=== PATIENT | female | born 1950 | race Caucasian/White ===

== ENCOUNTER 2017-08-28 17:26 | Emergency (ER) | payer MEDICARE ==
[2017-08-28 18:11] VITALS: BP 109/54
--- NOTE | 2017-08-28 19:23 | UC ---
Komal Trivedi Rebecca, scribed for Reyna Park MD on 08/28/17 at 1920 . Skin Complaint HPI - HPI Summary HPI Summary: Pt is a 66 y/o F who presents to [facility] c/o L lateral calf erythema and pain s/ p dog scratch. Pt got a tattoo on Saturday (8 days ago) and on Saturday night (4 days ago) she was scratched by her son's puppy's nails. The following day it became erythematous and drained yellow fluid. On triage, pain was severe, ranked 8/10. Has been applying neosporin and hand lotion to the tattoo and has not taken anything for the pain. PMHx DM - BG has been controlled lately and she has never had any skin infections that don't heal well. Last Tetanus within the last 10 years. 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 Pt's medications reviewed this visit - History of Current Complaint Chief Complaint: UCLowerExtremity Time Seen by Provider: 08/28/17 19:12 Stated Complaint: LEFT LEG COMPLAINT Hx Obtained From: Patient Onset/Duration: Lasting Days - 4 days ago, Still Present Current Severity: Severe Pain Intensity: 8 Pain Scale Used: 0-10 Numeric Location: Other - Left calf Character: Pain, Redness Associated Signs & Symptoms: Positive: Drainage - Yellow. Negative: Fever - Allergy/Home Medications Allergies/Adverse Reactions: Allergies Allergy/AdvReac Type Severity Reaction Status Date / Time aspirin Allergy See Comment Verified 08/28/17 18:12 bee venom protein (honey bee) Allergy Anaphylatic Verified 08/28/17 18:12 Shock Sulfa (Sulfonamide Allergy Rash Verified 08/28/17 18:12 Antibiotics) ANTIBIOTICS Allergy Severe GI PROBLEMS Uncoded 08/28/17 18:12 Review of Systems Constitutional: Negative Skin: Other - L calf erythema and pain with drainage Eyes: Negative ENT: Negative Respiratory: Negative Cardiovascular: Negative Gastrointestinal: Negative Genitourinary: Negative Motor: Negative Neurovascular: Negative Musculoskeletal: Negative Neurological: Negative Psychological: Negative All Other Systems Reviewed And Are Negative: Yes PMH/Surg Hx/FS Hx/Imm Hx Endocrine History: Diabetes, Dyslipidemia - HLD Cardiovascular History: Hypertension - Surgical History Surgical History: Yes Surgery Procedure, Year, and Place: CATARACTS (BILAT), ORBITAL "BLOWOUT", DENTAL EXTRACTIONS, BACK SURGERY, , CHOLECYSTECTOMY, APPENDECTOMY, CYSTS/FIBROUS TUMORS, 2 OPERATIONS ON ARM - Family History Known Family History: Positive: Diabetes - Social History 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 Alcohol Use: None Substance Use Type: None Smoking Status (MU): Former Smoker Physical Exam - Summary Physical Exam Summary: Vital Signs Reviewed: Yes A+Ox3, no distress Eyes: Conjunctiva Clear ENT: Hearing grossly normal neck: supple Respiratory: Positive: No respiratory distress, No accessory muscle use Cardiovascular: skin color reflect adequate perfusion 2+ DP, PT CBT < 2 sec Musculoskeletal Exam: BUCKLEY x 4 without difficulty Neurological: Positive: Alert, ambulatory without difficulty Psychological: Positive: Normal Response To Family Skin: Positive: left lateral calf pt with fresh tatoo. pt with scratch through wound with scab + erythema no fluctuance, no induration, no drainage No crepitus Triage Information Reviewed: Yes Vital Signs: Initial Vital Signs Temp 98.4 F 08/28/17 18:06 Pulse 68 08/28/17 18:06 Resp 18 08/28/17 18:06 BP 109/54 08/28/17 18:06 Pulse Ox 98 08/28/17 18:06 Course/Dx - Course Course Of Treatment: Patient medications reviewed this visit. Pt with cellulitis and abraison left lateral mid thigh in area of fresh tatoo. abx. wound care. return precautions - Diagnoses Provider Diagnoses: cellulitis Discharge - Sign-Out/Discharge Documenting (check all that apply): Discharge/Admit/Transfer - Discharge Plan Condition: Stable Disposition: HOME Prescriptions: DOXYcycline CAP(*) [DOXYcycline 100MG CAP(*)] 100 mg PO BID #14 cap Patient Education Materials: Cellulitis (ED) Referrals: Martínez Antoine MD [Primary Care Provider] - Additional Instructions: - Take antibiotics as prescribed until gone - Elevate your leg to help with swelling and pain - Okay to alternate ibuprofen (Advil, Motrin) and Tylenol every 3 hours for pain or fever. Take with food. Do NOT take for more than 4-5 days. - Keep wound clean, Okay to cover with thin layer of antibiotic ointment and bandage while at work - when home, okay to leave open to air - Monitor your wound for worsening infection - reddness, red streaking, odor, green drainage - if you have any concerns it is recommended you go to the emergency department for further evaluation - Billing Disposition and Condition Condition: STABLE Disposition: Home The documentation as recorded by the Komal lobo Rebecca accurately reflects the service I personally performed and the decisions made by me, Reyna Park MD.
== END 2017-08-28 19:35 | disposition home or self-care (01) ==
LOC: UCEAST 17:26
DX: L03.116 Cellulitis of left lower limb (principal); E11.9 Type 2 diabetes mellitus without complications; I10 Essential (primary) hypertension; Z88.6 Allergy status to analgesic agent; Z91.030 Bee allergy status; Z88.2 Allergy status to sulfonamides; Z88.1 Allergy status to other antibiotic agents; Z87.891 Personal history of nicotine dependence
CPT/HCPCS: 99212; G0463

== ENCOUNTER → 2018-09-29 09:42 | Day surgery (SDC) | payer MEDICARE ==
[~2018-09-29 09:42] MED LIST: Ascorbic Acid TAB* 500 MG PO SCH; Aspirin EC TAB* 81 MG TAB.EC PO SCH; Atorvastatin* 40 MG TAB PO SCH; BIOTIN 5000 MCG PO SCH; CHOLECALCIFEROL 1000 UNIT PO SCH; Cyanocobalamin TAB* 500 MCG PO SCH; Diazepam TAB(*) 5 MG ONE; Enalapril TAB* 5 MG PO SCH; FLUoxetine CAP* 10 MG PO SCH; Fluticasone NASAL SPRAY 50MCG* 16 gm SPRAY BTL BOTH NARES PRN; Heparin 2 UNITS/ML IVPREMIX* 3,000 UNIT/1,500 ML BAG IV ONE; Heparin(*) 1000 UNIT/ML 10 ML VIAL CATH LAB IV ONE; Iodixanol 320 (CONTRAST) 100 ML SDV ONE; Lidocaine 1% INJ* 10 MG/ML 30 ML SDV ONE; Midazolam* 1 MG/ML 5 ML VIAL (5 MG) ONE; NS 0.9% 1000 ML** 1,000 ML IV SCH; Olopatadine 0.2% (NF) 1 DROP BTL BOTH EYES SCH; Pantoprazole TAB * 40 MG TAB PO SCH; SIMVASTATIN PO SCH; Triamcinolone Acetonide* 40 MG/ML 1 ML VIAL PRN; VERAPAMIL 2.5 MG/ML 2 ML VIAL ** 5 mg/2 ml ONE; ValACYclovir (*) 500 MG TAB PO PRN; diPHENhydraMINE PO* 25 MG ONE; fentaNYL* 50 MCG/ML 2 ML VIAL (100 MCG VIAL) ONE; nitroGLYCERIN DRIP* 25,000 MCG/250 ML BTL ONE
--- NOTE | 2018-09-29 14:05 | CATH ---
"*[facility]* [place] [address] Main: [phone] [email or web address] Cardiac Catheterization Patient: Mary Jane Wise : 1950 Study Date: 09/29/2018 Age: 67 Gender: F HR: Height: 67 in /170.2 cm BSA: 2.17 m^2 Weight: 212.1 lb /96.4 kg BMI: 33.3 kg/m^2 District Agent: Blayne Caballero MD Ordering Physician: Jose M Adams MD Referring Physician: Jose M Adams MD - Right coronary angiography. - Left coronary angiography. Summary: 1. RV marginal 2: Lesion: There is an 85% stenosis in the proximal portion. The vessel is of small caliber. 2. No significant coronary artery disease in left dominant system Recommendations: The patient will be seen back in follow up by her primary agency legal counsel, Dr. Jose M Adams for further cardiac evaluation into causes for her symptoms. Indications: Asked by Dr. Jose M Adams to perform diagnostic coronary arteriography in light of and abnormal coronary CTA describing multivessel disease in a patient with aortic stenosis with exrtional chest discomfort. History: Functional status: CCS class II (slight limitation of ordinary activity). Risk factors: Current tobacco use. Hypertension. Diabetes mellitus; on therapy with oral hypoglycemics. Dyslipidemia. Family history is significant for coronary artery disease. Medications: The patient received no antianginal therapy in the last two weeks. Labs, prior tests, procedures, and surgery: Blood tests: International normalized ratio (INR) of 0.85. Serum potassium (K) of 4.1 mEq/l. Serum sodium (Na) of 141 mEq/l. Serum creatinine (current admission) of 0.75 mg/dl. Blood urea nitrogen of 14 mg/dl. Glucose of 135 mg/dl. Platelet count of 259 th/ul. White blood cell count (WBC) of 0.01 th/ul. Red blood cell count (RBC) of 4440 th/ul. Hematocrit of 39 %. Hemoglobin (pre-procedure) of 13.1 g/dl. Study data: Study status: Cardiac cath: elective. Location: Catheterization laboratory. Consent: The risks, benefits, and alternatives to the procedure were explained to the patient and/or their healthcare transportation services representative and written informed consent was obtained. All available pre-procedure labs were reviewed. Height: 170.2 cm. 67 in. Weight: 96.4 kg. 212.1 lb. Body surface area: 2.17 m^2. Body mass index: 33.3 kg/m^2. Procedure: 1. Initial setup. The patient was brought to the laboratory. Surface ECG leads, blood pressure measurements, and pulse oximetric signals were monitored. A baseline seven lead ECG was recorded. A time out was observed per protocol. 2. Skin preparation. The planned puncture sites were prepped and draped in the usual sterile manner. 3. Local anesthesia. 1% lidocaine was administered. 4. Local anesthesia. 1% lidocaine (2 ml) was administered. 5. Right radial artery access. A 6F Glidesheath Slender sheath was advanced into the vessel. 6. Supplemental oxygen. Oxygen, 2 L/min was administered throughout the procedure. 7. Selective right coronary angiography. A 5F TIG 4.0 catheter was advanced into the right coronary vessel ostium under fluoroscopic guidance. Contrast was injected. Images were obtained in multiple projections. 8. Selective left coronary angiography. A 5F TIG 4.0 catheter was advanced into the left coronary vessel ostium under fluoroscopic guidance. Contrast was injected using 2 injections. Images were obtained in multiple projections. 9. Right radial artery hemostasis. Vessel closure was achieved with a Regular Vasc Band device. Study completion: Minimal estimated blood loss. All catheters inserted during the procedure were removed. There were no apparent complications. Administered medications: VALIUM (Diazepam), 2.5mg, PO. BENADRYL (Diphenhydramine), 25mg, PO. (Radial) Nitroglycerin, 300mcg, intra-arterially. (Radial) Verapamil, 3mg, intra-arterially. (Radial) Heparin, 3,000units, intra-arterially. NaCl 0.9% , infusion , at a rate of 50 ml/hr. NaCl 0.9% , 100 ml , bolus. NaCl 0.9% , infusion , at a rate of 50 ml/hr. Contrast: Visipaque 45 ml (total dose). Visipaque 55 ml (wasted). Radiation: Fluoroscopy time: 5.2 min.Air Kerma - 1257mGy. DAP -7893microGy/m2 Discharge: The patient tolerated the procedure well and was discharged from the lab in stable condition. Findings Coronary arteries: The coronary circulation is left dominant. The left main has a normal course and is very short. The left anterior descending has a normal course to the anterior AV groove, gives rise to 3 diagonals, and wraps around the apex. The left circumflex gives rise to 4 obtuse marginals and the posterior descending artery. The right coronary gives rise to 2 RV marginals. Left main: Normal, 0% stenosis. LAD: Minor luminal irregularities. Left circumflex: Distal vessel lesion: There is a 30% stenosis. Right coronary: RV marginal 2: Lesion: There is an 85% stenosis in the proximal portion. The vessel is of small caliber. Hemodynamics: + + + |Stage description |Condition 1 -| + + + |Arterial pressure s/d (m)|140/66 (94) | + + + Prepared and electronically signed by Blayne Caballero MD 09/29/2018 14:04"
[2018-09-29 15:02] VITALS: BP 156/68
== END | disposition home or self-care (01) ==
LOC: CHICATH 09:42
PROVIDERS: ATTEND Internal Medicine Cardiovascular Disease
DX: I25.10 Atherosclerotic heart disease of native coronary artery without angina pectoris (principal); R07.9 Chest pain, unspecified; I35.0 Nonrheumatic aortic (valve) stenosis; I10 Essential (primary) hypertension; E78.00 Pure hypercholesterolemia, unspecified; E11.69 Type 2 diabetes mellitus with other specified complication; Z79.84 Long term (current) use of oral hypoglycemic drugs; I44.7 Left bundle-branch block, unspecified; Z72.0 Tobacco use; F32.89 Other specified depressive episodes
CPT/HCPCS: 76937; 93454; A9270-GY; J1644; J2250; J3010

== ENCOUNTER 2019-04-21 12:53 | Emergency (ER) | payer MEDICARE ==
--- OUTSIDE RECORDS SUMMARY | 2019-04-21 12:59 | XMS REPORT | Continuity of Care Document ---
:1950 External Reference #:[id number] Author Name Jose M Adams DO FACC (transmitted by agent of provider Milka Hussein) Address [facility]. 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 [phone] Medicine Problems Description No Information Available Social History Type Date Description Comments Sex Unknown Tobacco Use Start: Unknown End: Former Cigarette Smoker Unknown ETOH Use Denies alcohol use Tobacco Use Start: Unknown End: Patient is a former started at age 17, Unknown smoker quit at age 62, 1 1/2 ppd Recreational Drug Use Denies Drug Use Tobacco Use Start: Unknown Patient is a current e-cigg smoker smoker, smokes every day Smoking Status Reviewed: 03/30/19 Patient is a current e-cigg smoker smoker, smokes every day Exercise Type/Frequency Does not exercise Allergies, Adverse Reactions, Alerts Active Allergies Reaction Severity Comments Date NKDA 10/09/2018 Sulfa Antibiotics 04/14/2013 Latex 04/14/2013 Tape 04/14/2013 Bee Sting 09/25/2018 Metals Hives 09/25/2018 Iodinated Diagnostic Agents Oral contrast causes GI 10/09/2018 upset, Medications Active Medications SIG Qnty Indications Ordering Provider Date Aspirin 1 by mouth every 90tabs R07.9 Jose M Adams, 09/25/[address] day DO FACC Atorvastatin Calcium 1 by mouth every 90tabs E78.5 Jose M Adams, 2018 40mg day DO FACC Tablets Pantoprazole Sodium 1 by mouth every 90tabs I35.0 Jose M Adams, 2018 20mg day DO FACC Tablets Enalapril Maleate 1 po qd Unknown 10mg Tablets Vitamin D-3 1 by mouth every Unknown 1000Unit day Capsules Vitamin B12 1 by mouth every Unknown 6000mcg day Tablets ER Metformin HCL 1 by mouth twice Unknown 1000mg a day Tablets Vitamin C ER 3 by mouth every Unknown 500mg day Capsules ER Fluoxetine HCL 1 by mouth every Unknown 10mg day Capsules Triamcinolone apply twice a Unknown Acetonide day as needed 0.1% Cream Biotin Maximum 1 by mouth daily Unknown Strength 5000mcg Capsules Olopatadine HCL one drop in each Unknown 0.2% eye daily. Solution Fluticasone Propionate 2 sprays each Unknown nostril daily as 50mcg/Act Suspension needed Medications Administered in Office Medication SIG Qnty Indications Ordering Provider Date Inj, Regadenoson, 0.1 MG Jose M Adams, DO [facility] 12/26/2015 Injection Technetium TC 99M Jose M Adams, DO [facility] 12/26/2015 Tetrofosmin, Per Unit Dose Up To 40 Millicuries Injection Immunizations Description No Information Available Vital Signs Date Vital Result Comment 03/30/2019 1:50pm Height 67 inches 5'7" Weight 205.00 lb with shoes BP Systolic Sitting 124 mmHg lue reg cuff BP Diastolic Sitting 68 mmHg lue reg cuff BP Systolic Standing 126 mmHg lue reg cuff BP Diastolic Standing 68 mmHg lue reg cuff Respiratory Rate 16 /min BMI (Body Mass Index) 32.1 kg/m2 Ejection Fraction 55-60% echo. 06/30/18 10/09/2018 7:51am Height 67 inches 5'7" Weight 214.00 lb with shoes Heart Rate 64 /min BP Systolic Sitting 114 mmHg lue reg cuff BP Diastolic Sitting 68 mmHg lue reg cuff BP Systolic Standing 118 mmHg lue reg cuff BP Diastolic Standing 68 mmHg lue reg cuff Respiratory Rate 16 /min BMI (Body Mass Index) 33.5 kg/m2 Ejection Fraction 55-60% echo. 06/30/18 Results Description No Information Available Procedures Date Code Description Status 10/20/2018 69645 Moderate Sedation Services; Same Phys Intl 15 Mins; PT >= Completed 5 Years 10/20/2018 74713 Color Flow Doppler/Interp & Reprt Completed 10/20/2018 93541 Pulse Wave/Continuous-Interp.RPT Completed 10/20/2018 75102 Echocardiography, Transesophageal, Real Time W/Image 2D Completed W/W/O M-M 09/29/2018 64620 Cath PLMT&NJX L Ventriculog Img S&I Completed Medical Devices Description No Information Available Encounters Type Date Location Provider Dx Diagnosis Office Visit 10/09/2018 [facility] Jose M Adams, I35.0 Nonrheumatic aortic 8:00a Of Chinchilla Farmer DO FACC (valve) stenosis I44.7 Left bundle-branch block, unspecified I25.84 Coronary atherosclerosis due to calcified coronary lesion I20.8 Other forms of angina pectoris E11.69 Type 2 diabetes mellitus with other specified complication F17.201 Nicotine dependence, unspecified, in remission I10 Essential (primary) hypertension E78.5 Hyperlipidemia, unspecified Assessments Date Code Description Provider 03/30/2019 I35.0 Nonrheumatic aortic (valve) stenosis Jose M Adams, DO FACC 03/30/2019 I44.7 Left bundle-branch block, unspecified Jose M SMalina Adams, DO FACC 03/30/2019 I25.84 Coronary atherosclerosis due to Jose M SMalina Adams, DO FACC calcified coronary lesion 03/30/2019 I10 Essential (primary) hypertension Jose M Adams, DO FACC 03/30/2019 E78.5 Hyperlipidemia, unspecified Jose M SMalina Adams, DO FACC 10/20/2018 I35.0 Nonrheumatic aortic (valve) stenosis Jose M SMalina Adams, DO FACC 10/09/2018 I35.0 Nonrheumatic aortic (valve) stenosis Jose M SMalina Adams, DO FACC 10/09/2018 I44.7 Left bundle-branch block, unspecified Jose M SMalina Adams, DO FACC 10/09/2018 I25.84 Coronary atherosclerosis due to Jose M S. Adams, DO FACC calcified coronary lesion 10/09/2018 I20.8 Other forms of angina pectoris Jose M Adams, DO FACC 10/09/2018 E11.69 Type 2 diabetes mellitus with other Jose M SMalina Adams, DO FACC specified complication 10/09/2018 F17.201 Nicotine dependence, unspecified, in Jose M Adams, DO [facility] remission 10/09/2018 I10 Essential (primary) hypertension Jose M Adams, DO [facility] 10/09/2018 E78.5 Hyperlipidemia, unspecified Jose M Adams, DO [facility] 09/29/2018 I25.10 Atherosclerotic heart disease of Blayne Caballero M.D., [facility], [place] coronary artery with FSCAI Plan of Treatment 03/30/2019 - Jose M Adams, DO FACCI35.0 Nonrheumatic aortic (valve) stenosisNew Orders:Echocardiogram, Ordered: 03/30/19Follow up:Schedule echo 2019 f/u kprymegitfY09.7 Left bundle-branch block, oroxmclwuiaM67.84 Coronary atherosclerosis due to calcified coronary [id number] Essential (primary) [id number] Hyperlipidemia, unspecified Functional Status Description No Information Available Mental Status Description No Information Available Referrals Description No Information Available
[2019-04-21 13:48] VITALS: BP 129/70
--- NOTE | 2019-04-21 13:54 | UC ---
Hand/Wrist HPI - HPI Summary HPI Summary: 68 yo female presents with LEFT thumb injury. 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 This morning she was cleaning her hands and pulled her left thumb in an attempt to scrub it and felt a sharp pain and pop at the base of her volar thumb. Since that time has not been able to flex her thumb at MCP. She is right handed. Denies numbness or tingling. - History Of Current Complaint Chief Complaint: UCUpperExtremity Stated Complaint: LEFT THUMB INJURY Time Seen by Provider: 04/21/19 13:54 Hx Obtained From: Patient Onset/Duration: Sudden Onset Severity Initially: Moderate Severity Currently: Moderate Pain Intensity: 0 - Allergies/Home Medications Allergies/Adverse Reactions: Allergies Allergy/AdvReac Type Severity Reaction Status Date / Time Adhesive Tape Allergy Rash Verified 04/21/19 13:48 bee venom protein (honey bee) Allergy Anaphylatic Verified 04/21/19 13:48 Shock Iodinated Contrast Media Allergy Nausea And Verified 04/21/19 13:48 Vomiting latex Allergy Rash Verified 04/21/19 13:48 Sulfa (Sulfonamide Allergy Rash Verified 04/21/19 13:48 Antibiotics) aspirin AdvReac See Comment Verified 04/21/19 13:48 ANTIBIOTICS Allergy Severe GI PROBLEMS Uncoded 04/21/19 13:48 bandaids Allergy Rash Uncoded 04/21/19 13:48 METALS Allergy See Comment Uncoded 04/21/19 13:48 PMH/Surg Hx/FS Hx/Imm Hx Endocrine History: Diabetes, Dyslipidemia Cardiovascular History: Hypertension - Surgical History Surgical History: Yes Surgery Procedure, Year, and Place: CATARACTS (BILAT), ORBITAL "BLOWOUT", DENTAL EXTRACTIONS, BACK SURGERY, , CHOLECYSTECTOMY, APPENDECTOMY, CYSTS/FIBROUS TUMORS, 2 OPERATIONS ON ARM - Family History Known Family History: Positive: Diabetes - Social History Occupation: Employed Full-time Lives: With Family Alcohol Use: None Substance Use Type: None Smoking Status (MU): Former Smoker Type: eCigarettes Review of Systems All Other Systems Reviewed And Are Negative: No Constitutional: Positive: Negative Skin: Positive: Negative Respiratory: Positive: Negative Cardiovascular: Positive: Negative Neurovascular: Positive: Negative Musculoskeletal: Positive: Other: - Left thumb pain Neurological: Positive: Negative Psychological: Positive: Negative Physical Exam - Summary Physical Exam Summary: GENERAL: NAD. WDWN. No pain distress. SKIN: No rashes, sores, lesions, or open wounds. CHEST: No accessory muscle use. Breathing comfortably and in no distress. CV: Pulses intact radial and ulnar. Cap refill <2seconds MSK: LEFT THUMB: Passive ROM intact. Active ROM decrease - unable to flex at MCP. FROM at IP. NTTP. Mild edema and ecchymosis at volar MCP. No snuffbox tenderness. NEURO: Alert. Sensations intact hand and all fingers. PSYCH: Age appropriate behavior. Triage Information Reviewed: Yes Vital Signs: Initial Vital Signs Temp 98.5 F 04/21/19 13:46 Pulse 75 04/21/19 13:46 Resp 16 04/21/19 13:46 BP 129/70 04/21/19 13:46 Pulse Ox 95 04/21/19 13:46 Vital Signs Reviewed: Yes Diagnostics - Radiology Thumb XR Radiology Interpretation Completed By: Radiologist Summary of Radiographic Findings: IMPRESSION: OSTEOARTHRITIS. NO ACUTE OSSEOUS INJURY. IF SYMPTOMS PERSIST, RECOMMEND REPEAT IMAGING. Hand/Wrist Course/Dx - Course Course Of Treatment: XR as above. Suspect sprain vs flexor tendon rupture. Pt placed in thumb spica splint and advised to f/u with Orthopedics - Differential Dx/Diagnosis Provider Diagnosis: Thumb pain Discharge ED - Sign-Out/Discharge Documenting (check all that apply): Patient Departure All imaging exams completed and their final reports reviewed: Yes - Discharge Plan Condition: Stable Disposition: HOME Patient Education Materials: Finger Sprain (ED), Tendon Rupture (ED) Referrals: Daniel Epstein DO [Primary Care Provider] - Stuart Mccabe MD [Medical Doctor] - As Soon As Possible Additional Instructions: If you develop a fever, shortness of breath, chest pain, new or worsening symptoms - please call your PCP or go to the ED immediately. The X-ray did not show a broken bone, but your exam could be consistent with a tendon rupture. 1) Rest, ice, and elevate your thumb to decrease pain 2) Use the thumb brace at all times 3) If your thumb does not improve in 3-5 days, please call Orthopedics at the number below to schedule an appointment for a recheck - Billing Disposition and Condition Condition: STABLE Disposition: Home
== END 2019-04-21 14:39 | disposition home or self-care (01) ==
LOC: UCEAST 12:53
DX: M79.645 Pain in left finger(s) (principal); M19.042 Primary osteoarthritis, left hand; E11.9 Type 2 diabetes mellitus without complications; I10 Essential (primary) hypertension; Z91.09 Other allergy status, other than to drugs and biological substances; Z91.030 Bee allergy status; Z88.2 Allergy status to sulfonamides; Z88.6 Allergy status to analgesic agent; Z88.1 Allergy status to other antibiotic agents; Z91.040 Latex allergy status; Z87.891 Personal history of nicotine dependence
CPT/HCPCS: 99213; G0463

== ENCOUNTER 2019-05-01 09:15 | Day surgery (SDC) | payer MEDICARE ==
--- NOTE | 2019-04-27 16:48 | HP ---
PREOPERATIVE HISTORY AND PHYSICAL: DATE OF SURGERY/ADMISSION: 05/01/19 [facility] DATE OF OFFICE VISIT/ENCOUNTER: 04/27/19 ATTENDING SURGEON: Mikayla Hager MD * (DICTATED BY QUINTIN SIMON) PROCEDURE: Flexor tendon repair, left thumb. 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 She was trying to wipe her hands off with a towel and she twisted her thumb and she felt a pop in her thumb. Since then, she has not been able to flex the thumb at the IP joint. This is her nondominant hand. She has been able to continue to do some work but is finding it quite difficult. She denies any numbness or tingling. Denies any other injury. She was seen at [facility] for x-rays shortly after the injury and x-rays were negative for any fracture, but there was suspicion of soft tissue injury identified on the x-ray. We will get clearance from the patient's associate software engineer, Dr. Adams prior to proceeding with surgery. PAST MEDICAL HISTORY: 1. Diabetes mellitus. 2. Heart valve disorder with a murmur. 3. Hypertension. 4. Anxiety/depression. 5. GERD. PAST SURGICAL HISTORY: 1. Cardiac catheterization. 2. Bilateral cataract removal. 3. Cholecystectomy. 4. . 5. Open reduction and internal fixation, right arm. 6. Low back surgery in 1979. CURRENT MEDICATIONS: 1. Aspirin 81 mg daily. 2. Atorvastatin calcium 40 mg daily. 3. Biotin Maximum Strength 5000 mcg daily. 4. Cholecalciferol 1000 units daily. 5. Cyanocobalamin 6000 mcg daily. 6. Enalapril maleate 10 mg daily. 7. Fluoxetine HCl 10 mg daily. 8. Fluticasone propionate 2 sprays each nostril daily as needed. 9. Metformin 1000 mg twice a day. 10. Olopatadine HCl 0.2% one drop in each eye daily. 11. Pantoprazole sodium 20 mg daily. 12. Triamcinolone acetonide 0.1% apply twice a day as needed. 13. Valacyclovir HCl 500 mg daily. 14. Vitamin B12 600 mcg daily. 15. Vitamin C ER 500 mg 3 daily. 16. Vitamin D3 1000 units daily. ALLERGIES: SULFA ANTIBIOTICS caused hives, also allergic to LATEX and TAPE. FAMILY HISTORY: Heart disease, cancer. 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 She is an e-smoker and has been doing that for 10 years. Prior to that, she smoked cigarettes since age 15. She denies recreational drug use and does not drink alcohol. REVIEW OF SYSTEMS: Negative for general, cephalic, cardiovascular, respiratory , GI, , other musculoskeletal, integumentary, endocrine, neurologic, and hematologic symptoms. Infectious Disease: Negative for MRSA, hepatitis C, HIV. PHYSICAL EXAMINATION GENERAL: Well-developed, well-nourished 68-year-old female in no acute distress. VITAL SIGNS: Height 5 feet 6-1/4 inches, weight 194 pounds. Pulse rate 72, blood pressure 126/74. HEENT: Normocephalic, atraumatic. Pupils are equal, round, and reactive to light and accommodation. Extraocular movements are intact. Throat is clear. NECK: Supple. No palpable lymph nodes. PULMONARY: Lungs are clear to auscultation bilaterally. No wheezes, rales, or rhonchi. CARDIOVASCULAR: S1, S2. Systolic ejection murmur detected on auscultation. No rubs or gallops. ABDOMEN: Positive bowel sounds, soft, nontender. MUSCULOSKELETAL: On exam of her left hand, she has no active flexion at the IP joint of the thumb. She has tenderness at the A1 anatoliy. She has full extension of the thumb. Skin is intact. Neurovascular function is intact. NEUROLOGIC: Alert and oriented x3. Cranial nerves II through XII are intact. Sensation is intact to light touch. IMAGING STUDIES: X-rays AP, lateral, and oblique of the left thumb show a small calcific density in the area of the sesamoid bones at the level of the MP joint. IMPRESSION: Flexor digitorum longus rupture, left thumb. PLAN: The patient is scheduled to undergo a flexor tendon repair of left thumb with Dr. Hager on 05/01/19. She will return to the office 10 days postop for followup and suture removal. A prescription for [place] was e-scribed to the patient's pharmacy for postoperative pain management. We will see her back in the office 10 days postop for followup and suture removal. QUINTIN SIMON [id number]/[facility] #: [id number] [place]
[~2019-05-01 09:15] MED LIST changes: +Acetaminophen TAB* 325 MG ONE; +Acetaminophen TAB* 325 MG PO ONE; -Ascorbic Acid TAB* 500 MG PO SCH; -Aspirin EC TAB* 81 MG TAB.EC PO SCH; -Atorvastatin* 40 MG TAB PO SCH; -BIOTIN 5000 MCG PO SCH; +Buffered Lidocaine 1% SYRIN* 1 ML/SYRINGE INTRADERM ONE; -CHOLECALCIFEROL 1000 UNIT PO SCH; -Cyanocobalamin TAB* 500 MCG PO SCH; -Diazepam TAB(*) 5 MG ONE; -Enalapril TAB* 5 MG PO SCH; -FLUoxetine CAP* 10 MG PO SCH; +Famotidine IV* 10 MG/ML 2 ML (20 mg) IV ONE; +Famotidine IV* 10 MG/ML 2 ML (20 mg) ONE; -Fluticasone NASAL SPRAY 50MCG* 16 gm SPRAY BTL BOTH NARES PRN; -Heparin 2 UNITS/ML IVPREMIX* 3,000 UNIT/1,500 ML BAG IV ONE; -Heparin(*) 1000 UNIT/ML 10 ML VIAL CATH LAB IV ONE; -Iodixanol 320 (CONTRAST) 100 ML SDV ONE; +Lactated Ringers 1000 ML Bag* 1,000 ML IV SCH; -Lidocaine 1% INJ* 10 MG/ML 30 ML SDV ONE; -Midazolam* 1 MG/ML 5 ML VIAL (5 MG) ONE; -NS 0.9% 1000 ML** 1,000 ML IV SCH; -Olopatadine 0.2% (NF) 1 DROP BTL BOTH EYES SCH; -Pantoprazole TAB * 40 MG TAB PO SCH; -SIMVASTATIN PO SCH; -Triamcinolone Acetonide* 40 MG/ML 1 ML VIAL PRN; -VERAPAMIL 2.5 MG/ML 2 ML VIAL ** 5 mg/2 ml ONE; -ValACYclovir (*) 500 MG TAB PO PRN; +ceFAZolin 2 GM PREMIX in ORs 2 GM/50 ML BAG ONE; -diPHENhydraMINE PO* 25 MG ONE; -fentaNYL* 50 MCG/ML 2 ML VIAL (100 MCG VIAL) ONE; -nitroGLYCERIN DRIP* 25,000 MCG/250 ML BTL ONE
[2019-05-01] MEDS ORDERED: Midazolam* 1 MG/ML 2 ML VIAL (2 MG) ONE (09:20)
[2019-05-01] MEDS ORDERED: fentaNYL* 50 MCG/ML 2 ML VIAL (100 MCG VIAL) ONE (09:20)
[2019-05-01] MEDS ORDERED: Lidocaine 1% INJ* 10 MG/ML 30 ML SDV ONE (10:14)
[2019-05-01] MEDS ORDERED: Lidocaine 2% PF * 5 ML VIAL ONE (10:28)
[2019-05-01] MEDS ORDERED: Propofol* 10 MG/ML 20 ML BTL ONE (10:42)
[2019-05-01] MEDS ORDERED: Dexamethasone IV* 4 MG/ML 1 ML (4 MG) ONE (10:42)
[2019-05-01] MEDS ORDERED: Ondansetron INJ* 2 MG/ML VIAL ONE (10:42)
[2019-05-01] MEDS ORDERED: Phenylephrine 40 MCG/ML SYRINGE ONE (10:43)
[2019-05-01] MEDS ORDERED: EPHEDrine (Pressors)* 50 MG/ML VIAL ONE (10:52)
[2019-05-01] MEDS ORDERED: Ketorolac INJ* 30 MG/ML 1 ML VIAL ONE (11:19)
[2019-05-01 12:01] VITALS: BP 111/51
--- NOTE | 2019-05-02 00:26 | OP ---
DATE OF OPERATION: 05/01/19 [facility] DATE OF : 52 SURGEON: Mikayla Hager MD SENIOR APPLICATION PROGRAMMER: QUINTIN Mathur ANESTHESIA: General. PRE-OP DIAGNOSIS: Left thumb flexor tendon rupture. POST-OP DIAGNOSIS: Left thumb flexor tendon rupture. OPERATIVE PROCEDURE: Left thumb tendon transfer from ring finger FDS. ESTIMATED BLOOD LOSS: Zero. TOURNIQUET TIME: About 40 minutes. INDICATIONS FOR PROCEDURE: Mary Jane is a 68-year-old woman who complains of inability to move her left thumb. Her thumb has been bothering her for about 10 days. She felt a pop in her thumb when she was drying off her hands and since then, she has not been able to bend her thumb. Clinically, she has ruptured her flexor tendon. She has on x-ray some calcific density at the area of the A1 anatoliy. DESCRIPTION OF PROCEDURE: The patient was brought to the operating room and was given general anesthetic and placed in supine position on the operating table with tourniquet around the left upper extremity. The skin over the left upper extremity was prepped and draped in the usual sterile fashion. The hand and forearm were exsanguinated and the tourniquet was elevated to 250 mmHg. A Allie incision was made on the volar aspect of the thumb and the tendon was found to be ruptured at the level of the A1 anatoliy. Initially, I thought that the calcific density on the x-ray was some bony attachment from the distal aspect of the flexor tendon, but it was apparent that this was actually some remnant from an cortisone injection or some gouty tophus, so it was decided at this point that the tendon was not repairable and we retrieved the FDS tendon from its insertion on the middle phalanx of the ring finger and at past the end of the carpal tunnel and up to the A1 anatoliy of the thumb. It was secured with the appropriate amount of tension with 4-0 Prolene suture. The wounds were copiously irrigated with saline and then closed in an interrupted fashion with 4-0 nylon suture. The wounds were dressed with Xeroform, 4x4s, Webril, and a thumb spica splint. The patient tolerated the procedure well and was brought to the recovery room in good condition. [id number]/[facility] #: [id number] [facility]
--- NOTE | 2019-05-05 16:19 | OP ---
OPERATIVE NOTE: ADDENDUM: It was decided at this point that the tendon was not repairable and we retrieved the FDS tendon from its insertion on the middle phalanx of the ring finger and then passed it at the end of the carpal tunnel up to the A1 anatoliy of the thumb. [id number]/[facility] #: [id number] MTDD
== END 2019-05-01 12:41 | disposition home or self-care (01) ==
LOC: OREAST 09:15
PROVIDERS: ATTEND Orthopaedic Surgery
DX: M66.342 Spontaneous rupture of flexor tendons, left hand (principal); E11.9 Type 2 diabetes mellitus without complications; Z79.84 Long term (current) use of oral hypoglycemic drugs; I10 Essential (primary) hypertension; I35.0 Nonrheumatic aortic (valve) stenosis; K21.9 Gastro-esophageal reflux disease without esophagitis; F41.8 Other specified anxiety disorders; I25.10 Atherosclerotic heart disease of native coronary artery without angina pectoris; I44.7 Left bundle-branch block, unspecified; F17.290 Nicotine dependence, other tobacco product, uncomplicated
CPT/HCPCS: 88304; A9270-GY; J0690; J1100; J1885; J2250; J2405; J2704; J3010